=== PATIENT | male | born 1955 | race Caucasian/White ===

== ENCOUNTER 2023-02-12 08:36 | Outpatient (CLI) | payer MEDICARE, MEDICAID, SELFPAY ==
--- NOTE | 2023-02-12 08:48 | CT_ITS ---
WS: [id number] LDCT LUNG CANCER SCREENING TECHNIQUE: Noncontrast CT of the chest with coronal and sagittal reformatted images. CLINICAL INFORMATION: NICOTINE DEPENDENCE, CIGARETTES COMPARISON: None. DLP: 85.40 mGy.cm DIvol: Mean CTDIvol: 1.60 (mGy) All CT scans at [facility] use at least one of these dose optimization techniques: automat ed exposure control; mA and/or kV adjustment per patient size (includes targeted exams where dose is matched to clinical indication); or iterative reconstruction. FINDINGS: Normal caliber thoracic aorta and aortic calcification. LEFT adrenal adenoma measuring 2.9 cm. Mild spondylitic changes thoracic spine. Mild thoracic kyphosis. No mediastinal or hilar lymphadenopathy. No axillary lymphadenopathy. Fibrosis in the lung apices. Subpleural nodularity LEFT upper lobe. Few calcified granulomas. Subpleural nodule LEFT upper lobe me asuring 7 mm. IMPRESSION: CT/CT lung screening [id number] LUNG-RADS: 2-Benign Appearance or Behavior FOLLOW UP: 12 Month: Continue annual screening with LDCT
--- NOTE | 2023-02-12 08:54 | USCV_ITS ---
Ferraro Samuel Age: 67 Gender: M : 1955 Exam Date: 02/12/2023 09:35 Ordering Phys: Edna Kuhn MD Technologist: MOHAN Exam Location: [facility] – [place] Indication: AAA SCREENING HISTORY: Diameter (cm) AP x Transverse x Length Velocity (cm/s) Waveform Prox Aorta: 2.68 x 2.84 x 76.80 Triphasic Mid Aorta: 2.19 x 2.25 x 76.80 Triphasic Distal Aorta: 1.93 x 2.06 x 53.70 Triphasic Right Iliac Prox: 1.03 x 1.05 x 138.60 Triphasic Left Iliac Prox: 1.08 x 0.83 x 122.50 Triphasic Stent Prox Landing x x Aneurysmal Sac Max x x Lt Lat Sac Dim Rt Lat Sac Dim Stent Dist Landing x x Right Iliac Stent x x Left Iliac Stent x x Right Renal Art Left Renal Art FINDINGS: CONCLUSIONS No evidence of abdominal aortic or bilateral iliac aneurysm. Mild atheromatous disease William Jensen MD (Electronically Signed) Final Date: 12 February 2023 16:49 S
== END 2023-02-12 08:37 | disposition home or self-care (01) ==
PROVIDERS: PCP Family Medicine; Visit Provider Family Medicine
DX: Z12.2 Encounter for screening for malignant neoplasm of respiratory organs (principal); Z13.6 Encounter for screening for cardiovascular disorders; F17.210 Nicotine dependence, cigarettes, uncomplicated; I70.0 Atherosclerosis of aorta
CPT/HCPCS: 71271; 76706

== ENCOUNTER 2024-06-06 09:50 | Outpatient (CLI) | payer MEDICAID, MEDICARE, SELFPAY ==
--- NOTE | 2024-06-06 10:01 | CT_ITS ---
WS: [id number] LDCT LUNG CANCER SCREENING TECHNIQUE: Noncontrast CT of the chest with coronal and sagittal reformatted images. CLINICAL INFORMATION: HX OF TOBACCO USE COMPARISON: CT 02/12/2023 DLP: 89.70 mGy.cm DIvol: Mean CTDIvol: 1.60 (mGy) All CT scans at [facility] use at least one of these dose optimization techniques: automat ed exposure control; mA and/or kV adjustment per patient size (includes targeted exams where dose is matched to clinical indication); or iterative reconstruction. FINDINGS: Subpleural nodularity LEFT upper lobe similar to previous. Subpleural nodule LEFT upper lobe measurin g 7 mm unchanged. A few calcified granulomas. Fibrosis in the lung apices. No mediastinal or hilar lymphadenopathy. No axillary lymphadenopathy. Normal caliber thoracic aorta and aortic calcification. Coronary calcification. LEFT adrenal adenoma measuring 2.9 cm is unchanged. Mild spondylitic changes thoracic spine. Mild thoracic kyphosis. RIGHT reverse TSA. CT/CT lung screening [id number] IMPRESSION: LUNG-RADS: 2-Benign Appearance or Behavior FOLLOW UP: 12 Month: Continue annual screening with LDCT
== END 2024-06-06 09:51 | disposition home or self-care (01) ==
LOC: RAD 09:53
PROVIDERS: PCP Family Medicine; Visit Provider Family Medicine
DX: Z12.2 Encounter for screening for malignant neoplasm of respiratory organs (principal); Z87.891 Personal history of nicotine dependence; R91.1 Solitary pulmonary nodule; J98.4 Other disorders of lung; J84.10 Pulmonary fibrosis, unspecified; I25.10 Atherosclerotic heart disease of native coronary artery without angina pectoris; D35.02 Benign neoplasm of left adrenal gland; M46.84 Other specified inflammatory spondylopathies, thoracic region; M40.294 Other kyphosis, thoracic region; R91.8 Other nonspecific abnormal finding of lung field
CPT/HCPCS: 71271